=== PATIENT | female | born 1980 | race Caucasian/White ===

== ENCOUNTER → 2020-04-20 | Outpatient (CLI) | payer BC ==
[~2020-04-20] MED LIST: AMOX1XR PO; CIPR500 PO; HYDACE5 PO; IBUP800 PO; NITR100CA PO; PARAGARD T 3801 EACH IY; PENVK500 PO; PHENA200 PO; TRAM50 PO
== END | disposition home or self-care (01) ==
LOC: LAB SHORT 10:53 → LAB EV 10:53
DX: N39.0 Urinary tract infection, site not specified (principal)
CPT/HCPCS: 87086

== ENCOUNTER → 2022-10-24 | Outpatient (CLI) | payer BC | END | disposition home or self-care (01) | LOC: LAB 13:37 → LAB SHORT 13:37 | DX: R30.0 Dysuria (principal) | CPT/HCPCS: 87077; 87086; 87186 ==

== ENCOUNTER → 2023-08-10 | Outpatient (CLI) | payer BC | LOC: LAB SHORT 07:48 → LAB 07:48 | DX: N39.0 Urinary tract infection, site not specified (principal) | CPT/HCPCS: 87077; 87086; 87186 ==

== ENCOUNTER → 2023-09-09 | Outpatient (CLI) | payer BC | LOC: LAB SHORT 17:02 → LAB 17:02 | DX: R30.0 Dysuria (principal) | CPT/HCPCS: 87086 ==

== ENCOUNTER → 2024-04-05 | Outpatient (CLI) | payer BC | END | disposition home or self-care (01) | LOC: LAB 12:15 → LAB SHORT 12:15 | DX: N39.0 Urinary tract infection, site not specified (principal) | CPT/HCPCS: 87077; 87086; 87186 ==